=== PATIENT | female | born 1980 | race Caucasian/White ===

== ENCOUNTER → 2017-05-30 | Day surgery (SDC) | payer SELFPAY ==
[~2017-05-30] MED LIST: ALPRAZOLAM PO; IBUPROFEN800 MG PO; MELATONIN5 M1 PO; SOMA250 MG
--- NOTE | ~2017-05-30 | OR ---
Unit #: [id number] #: [id number] Patient: MILADIS ELDER [id number] [address] [address] [id number] O MR#: [id number] NAME: MILADIS ELDER ROOM: Date of Procedure: 05/30/2017 Admission Date: 05/30/2017 Surgeon: Kalin Calero M.D. : 1980 Attending Physician: Kalin Calero M.D. Primary Care Physician: Ron Baez OPERATIVE REPORT PREOPERATIVE DIAGNOSIS Band intolerance. Chronic abdominal pain. POSTOPERATIVE DIAGNOSIS Band intolerance. Chronic abdominal pain. PROCEDURES PERFORMED 1. Removal of laparoscopic adjustable gastric band. 2. Removal of laparoscopic band port. HEAD OF PRECISION TARGETING None. ANESTHESIA General anesthesia. ESTIMATED BLOOD LOSS Minimal. IV FLUIDS 500 crystalloid. COMPLICATIONS None. INDICATIONS FOR PROCEDURE The patient is a 36-year-old lady, who has had a lap band for quite sometime, presents with persistent abdominal pain and inability to keep down oral intake. She presents for band removal. DESCRIPTION OF PROCEDURE The patient was taken to the operative theater and placed in supine position. General anesthesia was induced. A 10-mm Visiport was then placed into the left upper quadrant without difficulty. The abdomen was insufflated to 15 mmHg CO2. The band tubing appeared to be normal from this visualization. I then cut down on the band port. This was removed and cut and the tubing dropped intraabdominal. I placed a 5-mm port at this site and another 5 mm port in the midline. I identified the band, which appeared to be normal. I saw no evidence of inflammation or erosion or other findings. The band was cut and removed from its position around the stomach and then delivered via the 10 mm port. The ports were removed. The fascia was closed with 0 Vicryl and skin with 4-0 Vicryl. Unit #: [id number] #: [id number] Patient: MILADIS ELDER The patient tolerated the procedure well and sent to recovery room in good condition thanks. Dictated by... Damion Estes/laura TD: 05/30/2017 16:15 JOB #: [id number] OPERATIVE REPORT Page 1 of 1 X Kalin Calero MD PROCEDURE OPERATIVE NOTE
== END | disposition home or self-care (01) ==
LOC: CSUR 06:15
DX: K95.09 Other complications of gastric band procedure (principal); G89.29 Other chronic pain; R10.9 Unspecified abdominal pain; F41.9 Anxiety disorder, unspecified; F32.9 Major depressive disorder, single episode, unspecified; E66.01 Morbid (severe) obesity due to excess calories; Z68.33 Body mass index [BMI] 33.0-33.9, adult; Z79.899 Other long term (current) drug therapy; Z98.890 Other specified postprocedural states
CPT/HCPCS: 84703; J0330; J0690; J1644; J2250; J2405; J2710; J3010; Q9968